=== PATIENT | female | born 1960 | race Caucasian/White ===

== ENCOUNTER 2021-07-05 16:39 | Emergency (ER) | payer MEDICARE ==
[~2021-07-05] VITALS: Ht 167.6 cm; Wt 65.8 kg
[~2021-07-05 16:39] MED LIST: PREDNISONE20 MG PO; TEGRETOL XR100 MG PO
[2021-07-05 18:00] LABS: HEMOGLOBIN 12.9 gm/dl (12.3-15.3); RED BLOOD COUNT 4.44 M/UL (4.00-5.10); WHITE BLOOD COUNT 6.4 K/UL (4.5-11.0)
[2021-07-05 18:16] LABS: BUN/CREATININE RATIO 20 (0-10)
== END 2021-07-05 21:45 | disposition home or self-care (01) ==
LOC: ER1 16:39
PROVIDERS: Physician Assistant Medical
DX: U07.1 COVID-19 (principal); Z23 Encounter for immunization; I42.9 Cardiomyopathy, unspecified; E78.5 Hyperlipidemia, unspecified; E87.6 Hypokalemia
CPT/HCPCS: 71045; 80053; 83605; 85025; 99285; M0245